=== PATIENT | male | born 1975 | race Caucasian/White ===

== ENCOUNTER 2017-06-15 12:31 | Emergency (ER) | payer BC ==
[~2017-06-15] VITALS: Ht 167.6 cm; Wt 91.0 kg
[2017-06-15] MEDS ORDERED: SODIUM CHLORIDE 0.9% 1,000 ML IV ONE (14:40)
[2017-06-15] MEDS ORDERED: MECLIZINE 25MG TABLET PO ONE (14:45)
[2017-06-15] MEDS ORDERED: FAMOTIDINE 20MG/2ML VIAL IV ONE (14:45)
[2017-06-15] MEDS ORDERED: DIPHENHYDRAMINE 50MG/ML VIAL IV ONE (14:45)
[2017-06-15] MEDS ORDERED: METOCLOPRAMIDE HCL 10MG/2ML VIAL IV ONE (14:45)
[2017-06-15 15:09] LABS: PROTHROMBIN TIME 10.9 sec (9.4-11.6)
[2017-06-15 15:11] LABS: BASOPHILS % 0.4 % (0.0-2.0); EOSINOPHILS % 0.3 % (0.0-5.0); HEMATOCRIT. 47.3 % (42.0-52.0); LYMPHOCYTES % 15.7 % (20.0-50.0); MEAN CORPUSCULAR HEMOGLOBIN 30.9 pg (28.0-32.0); MEAN CORPUSCULAR VOLUME 91.4 fL (80.0-94.0); MEAN PLATELET VOLUME 9.1 fl (7.4-10.4); MONOCYTES % 4.7 % (2.0-8.0); NEUTROPHILS % 78.9 % (40.0-76.0); PLATELET 287 x1000/uL (130-400); RED BLOOD CELL COUNT 5.18 mill/uL (4.7-6.1); RED CELL DISTRIBUTION WIDTH 13.6 % (11.6-14.6)
[2017-06-15 15:15] LABS: CARBON DIOXIDE 23 mEq/L (21-32); CHLORIDE 103 mEq/L (98-107)
[2017-06-15 17:07] LABS: CLARITY URINE CLEAR (CLEAR); COLOR URINE YELLOW (YELLOW); GLUCOSE URINE 3+ (NEGATIVE); KETONES URINE TRACE (NEGATIVE); LEUKOCYTE ESTERASE URINE NEGATIVE (NEGATIVE); NITRITE URINE NEGATIVE (NEGATIVE); OCCULT BLOOD URINE NEGATIVE (NEGATIVE); PROTEIN URINE 3+ (NEGATIVE); SPECIFIC GRAVITY URINE 1.038 (1.005-1.030); UROBILINOGEN URINE 0.2 E.U./dL (0.2-1.0)
[2017-06-15 17:24] LABS: *AMPHETAMINES SCREEN URINE NEGATIVE (NEGATIVE); *BARBITURATES SCREEN URINE NEGATIVE (NEGATIVE); *BENZODIAZEPINES SCREEN URINE NEGATIVE (NEGATIVE); *COCAINE SCREEN URINE NEGATIVE (NEGATIVE); CANNABINOID URINE SCREEN NEGATIVE (NEGATIVE); METHADONE URINE SCREEN NEGATIVE (NEGATIVE); OPIATES URINE SCREEN NEGATIVE (NEGATIVE); PHENCYCLIDINE URINE SCREEN NEGATIVE (NEGATIVE)
[2017-06-15 19:00] VITALS: BP 142/88
== END 2017-06-15 19:36 | disposition home or self-care (01) ==
LOC: ER 15:51
DX: H81.10 Benign paroxysmal vertigo, unspecified ear (principal); R51 Headache; R11.10 Vomiting, unspecified; E11.65 Type 2 diabetes mellitus with hyperglycemia; R03.0 Elevated blood-pressure reading, without diagnosis of hypertension; R79.89 Other specified abnormal findings of blood chemistry; J98.11 Atelectasis; I51.7 Cardiomegaly
CPT/HCPCS: 36415; 70450; 71010; 80053; 80305; 81001; 83690; 85025; 85610; 85730; 93005; 96361; 96374; 96375; 99285; J1200; J2765; J3490; J7030; Z7610; J8597

== ENCOUNTER 2022-05-02 11:20 | Emergency (ER) | payer OTHER, MEDICAID ==
[~2022-05-02] VITALS: Ht 170.2 cm; Wt 81.0 kg
[2022-05-02] MEDS ORDERED: OXYCODONE HCL/ACETAMINOPHEN 5/325MG TABLET PO ONE (13:00)
[2022-05-02 14:38] LABS: BASOPHILS % 0.5 % (0.0-2.0); EOSINOPHILS % 0.6 % (0.0-5.0); HEMATOCRIT. 33.5 % (42.0-52.0); HEMOGLOBIN. 11.3 g/dL (14.0-18.0); LYMPHOCYTES % 13.1 % (20.0-50.0); MEAN CORPUSCULAR HEMOGLOBIN 35.8 pg (28.0-32.0); MEAN CORPUSCULAR VOLUME 106.5 fL (80.0-94.0); MEAN PLATELET VOLUME 9.1 fl (7.4-10.4); MONOCYTES % 7.5 % (2.0-8.0); NEUTROPHILS % 78.3 % (40.0-76.0); PLATELET 196 x1000/uL (130-400); RED BLOOD CELL COUNT 3.15 mill/uL (4.7-6.1); RED CELL DISTRIBUTION WIDTH 18.7 % (11.6-14.6)
[2022-05-02 14:44] LABS: CHLORIDE 94 mEq/L (98-107)
[2022-05-02 15:48] LABS: INR 1.1; PROTHROMBIN TIME 11.7 sec (9.6-11.0)
[2022-05-02 16:00] VITALS: BP 153/85
== END 2022-05-02 16:39 | disposition home or self-care (01) ==
LOC: ER 11:20 → CANBEDREQ 17:20
DX: M79.18 Myalgia, other site (principal); M79.601 Pain in right arm; M79.602 Pain in left arm; E11.9 Type 2 diabetes mellitus without complications; I25.2 Old myocardial infarction; Z86.73 Personal history of transient ischemic attack (TIA), and cerebral infarction without residual deficits
CPT/HCPCS: 36415; 71045; 80053; 83605; 85025; 93005; 99285

== ENCOUNTER 2022-09-24 11:06 | Inpatient (IN) | payer OTHER, MEDICAID ==
[2022-09-23] MEDS: DEXT 5%/LACTATED RINGERS 1,000 ML IV SCH (23:50)
[~2022-09-24] VITALS: Ht 167.6 cm; Wt 77.8 kg
[2022-09-24 12:43] LABS: HEMATOCRIT. 23.5 % (42.0-52.0); HEMOGLOBIN. 7.2 g/dL (14.0-18.0); MEAN CORPUSCULAR HEMOGLOBIN 33.9 pg (28.0-32.0); MEAN CORPUSCULAR VOLUME 110.1 fL (80.0-94.0); MEAN PLATELET VOLUME 10.4 fl (7.4-10.4); PLATELET 91 x1000/uL (130-400); RED BLOOD CELL COUNT 2.13 mill/uL (4.7-6.1); RED CELL DISTRIBUTION WIDTH 19.2 % (11.6-14.6)
[2022-09-24] MEDS ORDERED: PANTOPRAZOLE SODIUM 40 MG/VIAL IV ONE (12:45)
[2022-09-24 12:57] LABS: INR 1.9; PROTHROMBIN TIME 19.8 sec (9.6-11.0)
[2022-09-24] MEDS ORDERED: PIPERACILLIN/TAZOBACTAM 3.375GM/50ML PREMIX IV ONE (13:45)
[2022-09-24] MEDS ORDERED: VANCOMYCIN 1G PREMIX 200 ML IV SCH (13:45)
[2022-09-24] MEDS ORDERED: PIPERACILLIN/TAZ 3.375G PREMIX 50 ML IV NR (14:00)
[2022-09-24 14:19] LABS: PLATELET ESTIMATE DECREASED
[2022-09-24 15:08] LABS: CHLORIDE 115 mEq/L (98-107)
[2022-09-24] MEDS ORDERED: SODIUM CHLORIDE 0.9% 500 ML IV ONE (15:45)
[2022-09-24] MEDS: PIPERACILLIN/TAZOBACTAM 3.375G in DEXT 5% WATER 50ML IV NR ×2 (15:45→19:54)
[2022-09-24] MEDS ORDERED: KCL 10MEQ/50ML PREMIX 50 ML IV ONE (15:45)
[2022-09-24] MEDS ORDERED: ONDANSETRON HCL 4MG/2ML INJ IV PRN (17:30)
[2022-09-24] MEDS ORDERED: MAGNESIUM/ALUMINUM HYDROXIDE/SIMETHICONE 30ML UDC PO PRN (17:30)
[2022-09-24] MEDS ORDERED: CLONIDINE 0.1MG TABLET PO PRN (17:30)
[2022-09-24] MEDS ORDERED: DOCUSATE SODIUM 100MG CAPSULE PO PRN (17:30)
[2022-09-24] MEDS ORDERED: IPRATROPIUM/ALBUTEROL 0.5-3(2.5)MG/3ML NEB NEB PRN (17:30)
[2022-09-24] MEDS ORDERED: ACETAMINOPHEN 325MG TABLET PO PRN (17:30)
[2022-09-24] MEDS ORDERED: PANTOPRAZOLE SODIUM 40 MG/VIAL IV SCH (18:00)
[2022-09-24] MEDS ORDERED: SODIUM BICARBONATE 8.4% 1 MEQ/ML 50ML SYR IV NR (18:30)
[2022-09-24] MEDS ORDERED: MEROPENEM 1,000 MG in SODIUM CHLORIDE 0.9% 100 ML IV SCH (19:00)
[2022-09-24] MEDS ORDERED: OCTREOTIDE 1,000 MCG in SODIUM CHLORIDE 0.9% 100 ML IV SCH (19:00)
[2022-09-24 19:04] LABS: BG BASE EXCESS -3.7 mmol/L (-2.0-2.0); BG DEOXYHEMOGLOBIN 3.9 % (0.0-5.0); BG FRACTION INSPIRED OXYGEN 32; BG HCO3 ACT 21.6 mmol/L (22.0-26.0); BG METHEMOGLOBIN 0.1 % (0.0-1.5); BG OXYGEN SATURATION 96.1 % (92.0-98.5); BG PCO2 40.2 mmHg (35.0-45.0); BG PH 7.349 (7.350-7.450); BG PO2 85.3 mmHg (75.0-100.0); BG SAMPLE SITE RIGHT BRACHIAL; BG TOTAL HEMOGLOBIN 11.9 g/dL (12.0-18.0); BG VENT MODE NASAL CANNULA
[2022-09-24 19:13] LABS: INR 1.4; PROTHROMBIN TIME 15.1 sec (9.6-11.0)
[2022-09-24 19:58] LABS: HEPATITIS B SURFACE ANTIGEN NEGATIVE
[2022-09-24 20:42] LABS: FERRITIN 4323 ng/mL (22-322)
[2022-09-24 22:07] LABS: CREATINE KINASE 562 IU/L (39-308); CREATINE KINASE MB FRACTION 2.6 ng/mL (0.5-3.6)
[2022-09-24 22:27] LABS: TOTAL IRON BINDING CAPACITY 166 ug/dL (250-450)
[2022-09-24] MEDS: BLOOD SUGAR DIAGNOSTIC STRIP TEST SCH (22:30)
[2022-09-24] MEDS: INSULIN GLARGINE 100 UNITS/ML SUBCUT SCH (23:00)
[2022-09-24] MEDS: PANTOPRAZOLE SODIUM 40 MG/VIAL IV SCH (23:00)
[2022-09-24] MEDS: INSULIN LISPRO 100 UNITS/ML SUBCUT SCH (23:10)
[2022-09-24 23:20] LABS: ETHANOL BLOOD < 10 mg/dL; HDL CHOLESTEROL 19 mg/dL (40-59); LDL CHOLESTEROL 23 mg/dL (5-100); T4 FREE 0.98 ng/dL (0.76-1.46); TOTAL IRON BINDING CAPACITY 211 ug/dL (250-450)
[2022-09-25] VITALS (16 sets, daily range): BP systolic 86–122; BP diastolic 37–73
[2022-09-25 00:05] LABS: FOLIC ACID (FOLATE) SERUM >20 ng/mL ng/mL (>5.38); VITAMIN B12 SERUM >2000 pg/mL pg/mL (211-911)
[2022-09-25] MEDS ORDERED: POTASSIUM CHLORIDE 20MEQ TABLET SR PO NR (00:15)
[2022-09-25] MEDS ORDERED: OCTREOTIDE 1,000 MCG in SODIUM CHLORIDE 0.9% 100 ML IV SCH (01:00)
[2022-09-25] MEDS: BLOOD SUGAR DIAGNOSTIC STRIP TEST SCH ×4 (08:15→21:19)
[2022-09-25] MEDS ORDERED: VANCOMYCIN 750MG PREMIX 150 ML IV NR (09:00)
[2022-09-25] MEDS: INSULIN LISPRO 100 UNITS/ML SUBCUT SCH ×4 (09:02→21:00)
[2022-09-25 12:43] LABS: BASOPHILS % 0.6 % (0.0-2.0); EOSINOPHILS % 0.9 % (0.0-5.0); HEMATOCRIT. 34.5 % (42.0-52.0); HEMOGLOBIN. 11.2 g/dL (14.0-18.0); LYMPHOCYTES % 7.8 % (20.0-50.0); MEAN CORPUSCULAR HEMOGLOBIN 33.2 pg (28.0-32.0); MEAN CORPUSCULAR VOLUME 102.2 fL (80.0-94.0); MEAN PLATELET VOLUME 10.3 fl (7.4-10.4); MONOCYTES % 9.3 % (2.0-8.0); NEUTROPHILS % 81.4 % (40.0-76.0); PLATELET 152 x1000/uL (130-400); RED BLOOD CELL COUNT 3.38 mill/uL (4.7-6.1); RED CELL DISTRIBUTION WIDTH 18.4 % (11.6-14.6)
[2022-09-25 13:01] LABS: CREATINE KINASE MB FRACTION 1.3 ng/mL (0.5-3.6)
[2022-09-25] MEDS: DEXTROSE 50% WATER 50ML SYRINGE IV PRN ×2 (14:32→18:30)
[2022-09-25] MEDS: DEXT 5%/LACTATED RINGERS 1,000 ML IV SCH ×2 (14:39→18:21)
[2022-09-25] MEDS ORDERED: MEROPENEM 1,000 MG in SODIUM CHLORIDE 0.9% 100 ML IV SCH (21:00)
[2022-09-25] MEDS: PANTOPRAZOLE SODIUM 40 MG/VIAL IV SCH (21:00)
[2022-09-25] MEDS ORDERED: EPOETIN ALFA 10000UNITS/ML VIAL SUBCUT SCH (21:00)
[2022-09-25] MEDS: INSULIN GLARGINE 100 UNITS/ML SUBCUT SCH (22:00)
[2022-09-25] MEDS: ACETAMINOPHEN 325MG TABLET PO PRN (23:17)
[2022-09-25 23:20] LABS: CHLORIDE 101 mEq/L (98-107)
[2022-09-25 23:21] LABS: PHOSPHORUS 2.8 mg/dL (2.5-4.9)
[2022-09-26] VITALS (29 sets, daily range): BP systolic 94–172; BP diastolic 50–88
[2022-09-26] MEDS: ACETAMINOPHEN 325MG TABLET PO PRN ×2 (03:26→16:23)
[2022-09-26] MEDS: GUAIFENESIN 200MG/10ML SUGAR FREE UDC PO PRN ×2 (03:33→06:43)
[2022-09-26 06:50] LABS: HEMATOCRIT. 33.5 % (42.0-52.0); HEMOGLOBIN. 10.8 g/dL (14.0-18.0); MEAN CORPUSCULAR HEMOGLOBIN 33.1 pg (28.0-32.0); MEAN CORPUSCULAR VOLUME 102.9 fL (80.0-94.0); MEAN PLATELET VOLUME 10.2 fl (7.4-10.4); PLATELET 138 x1000/uL (130-400); RED BLOOD CELL COUNT 3.26 mill/uL (4.7-6.1); RED CELL DISTRIBUTION WIDTH 18.5 % (11.6-14.6)
[2022-09-26 07:15] LABS: CHLORIDE 104 mEq/L (98-107)
[2022-09-26 07:24] LABS: PHOSPHORUS 3.2 mg/dL (2.5-4.9)
[2022-09-26] MEDS: BLOOD SUGAR DIAGNOSTIC STRIP TEST SCH ×4 (07:30→21:00)
[2022-09-26] MEDS: INSULIN LISPRO 100 UNITS/ML SUBCUT SCH ×4 (08:00→22:03)
[2022-09-26] MEDS: DEXT 5%/LACTATED RINGERS 1,000 ML IV SCH ×2 (08:43→09:07)
[2022-09-26] MEDS: PANTOPRAZOLE SODIUM 40 MG/VIAL IV SCH ×2 (09:06→22:01)
[2022-09-26 12:15] LABS: PLATELET ESTIMATE NORMAL
[2022-09-26] MEDS ORDERED: VANCOMYCIN 750MG PREMIX 150 ML IV NR (18:00)
[2022-09-26] MEDS: CEFEPIME 1,000 MG in DEXTROSE 5% WATER 50 ML IV SCH (18:49)
[2022-09-26] MEDS: METRONIDAZOLE 250MG TABLET PO SCH (22:00)
[2022-09-26] MEDS: INSULIN GLARGINE 100 UNITS/ML SUBCUT SCH (22:04)
[2022-09-27] VITALS (9 sets, daily range): BP systolic 91–128; BP diastolic 50–96
[2022-09-27] MEDS: METRONIDAZOLE 250MG TABLET PO SCH ×3 (06:35→21:45)
[2022-09-27] MEDS: BLOOD SUGAR DIAGNOSTIC STRIP TEST SCH ×4 (07:30→21:45)
[2022-09-27] MEDS: INSULIN LISPRO 100 UNITS/ML SUBCUT SCH ×4 (08:00→21:00)
[2022-09-27 08:20] LABS: BASOPHILS % 0.4 % (0.0-2.0); EOSINOPHILS % 1.5 % (0.0-5.0); HEMATOCRIT. 37.3 % (42.0-52.0); LYMPHOCYTES % 7.5 % (20.0-50.0); MEAN CORPUSCULAR HEMOGLOBIN 33.2 pg (28.0-32.0); MEAN PLATELET VOLUME 10.2 fl (7.4-10.4); MONOCYTES % 7.8 % (2.0-8.0); NEUTROPHILS % 82.8 % (40.0-76.0); PLATELET 157 x1000/uL (130-400); RED BLOOD CELL COUNT 3.62 mill/uL (4.7-6.1); RED CELL DISTRIBUTION WIDTH 18.8 % (11.6-14.6)
[2022-09-27 08:31] LABS: INR 1.4; PROTHROMBIN TIME 15.1 sec (9.6-11.0)
[2022-09-27] MEDS: PANTOPRAZOLE SODIUM 40 MG/VIAL IV SCH ×2 (09:53→21:00)
[2022-09-27] MEDS: CEFEPIME 1,000 MG in DEXTROSE 5% WATER 50 ML IV SCH (17:21)
[2022-09-27 20:22] LABS: PHOSPHORUS 2.9 mg/dL (2.5-4.9)
[2022-09-27] MEDS ORDERED: EPOETIN ALFA-EPBX 4,000 UNIT/ML VIAL SUBCUT SCH (21:00)
[2022-09-27] MEDS: INSULIN GLARGINE 100 UNITS/ML SUBCUT SCH (21:46)
[2022-09-28] VITALS: BP 131/97
[2022-09-28 04:00] VITALS: BP 103/53
[2022-09-28 06:30] LABS: BASOPHILS % 0.6 % (0.0-2.0); EOSINOPHILS % 1.4 % (0.0-5.0); HEMATOCRIT. 34.6 % (42.0-52.0); HEMOGLOBIN. 11.3 g/dL (14.0-18.0); LYMPHOCYTES % 8.1 % (20.0-50.0); MEAN CORPUSCULAR HEMOGLOBIN 33.2 pg (28.0-32.0); MEAN CORPUSCULAR VOLUME 101.9 fL (80.0-94.0); MEAN PLATELET VOLUME 10.3 fl (7.4-10.4); NEUTROPHILS % 80.9 % (40.0-76.0); PLATELET 156 x1000/uL (130-400); RED BLOOD CELL COUNT 3.39 mill/uL (4.7-6.1)
[2022-09-28] MEDS: BLOOD SUGAR DIAGNOSTIC STRIP TEST SCH ×4 (06:31→20:18)
[2022-09-28] MEDS: INSULIN LISPRO 100 UNITS/ML SUBCUT SCH ×4 (06:31→20:18)
[2022-09-28] MEDS: METRONIDAZOLE 250MG TABLET PO SCH ×3 (06:36→21:00)
[2022-09-28] MEDS: DEXTROSE 50% WATER 50ML SYRINGE IV PRN (07:12)
[2022-09-28 08:08] LABS: PHOSPHORUS 3.5 mg/dL (2.5-4.9)
[2022-09-28] MEDS: PANTOPRAZOLE SODIUM 40 MG/VIAL IV SCH ×2 (09:47→21:00)
[2022-09-28 12:00] VITALS: BP 155/77
[2022-09-28] MEDS ORDERED: SODIUM CHLORIDE 10% FOR INH 15ML VIAL NEB INH NR (12:30)
[2022-09-28 16:00] VITALS: BP 119/69
[2022-09-28] MEDS: CEFEPIME 1,000 MG in DEXTROSE 5% WATER 50 ML IV SCH (18:07)
[2022-09-28 20:00] VITALS: BP 132/67
[2022-09-28] MEDS ORDERED: INSULIN GLARGINE 100 UNITS/ML SUBCUT SCH (22:00)
[2022-09-29] VITALS (14 sets, daily range): BP systolic 98–133; BP diastolic 42–88
[2022-09-29] MEDS: BLOOD SUGAR DIAGNOSTIC STRIP TEST SCH ×3 (05:53→17:00)
[2022-09-29] MEDS: METRONIDAZOLE 250MG TABLET PO SCH ×2 (05:53→14:17)
[2022-09-29] MEDS: INSULIN LISPRO 100 UNITS/ML SUBCUT SCH ×3 (06:17→17:00)
[2022-09-29 06:33] LABS: BASOPHILS % 0.9 % (0.0-2.0); EOSINOPHILS % 1.7 % (0.0-5.0); HEMATOCRIT. 34.5 % (42.0-52.0); HEMOGLOBIN. 11.3 g/dL (14.0-18.0); LYMPHOCYTES % 8.3 % (20.0-50.0); MEAN CORPUSCULAR HEMOGLOBIN 33.2 pg (28.0-32.0); MEAN CORPUSCULAR VOLUME 101.1 fL (80.0-94.0); MONOCYTES % 9.7 % (2.0-8.0); NEUTROPHILS % 79.4 % (40.0-76.0); PLATELET 164 x1000/uL (130-400); RED BLOOD CELL COUNT 3.41 mill/uL (4.7-6.1); RED CELL DISTRIBUTION WIDTH 18.3 % (11.6-14.6)
[2022-09-29] MEDS: PANTOPRAZOLE SODIUM 40 MG/VIAL IV SCH (09:22)
[2022-09-29 09:24] LABS: PHOSPHORUS 3.6 mg/dL (2.5-4.9)
[2022-09-29] MEDS: CEFEPIME 1,000 MG in DEXTROSE 5% WATER 50 ML IV SCH (17:03)
[2022-09-29] MEDS ORDERED: VANCOMYCIN 1G PREMIX 200 ML IV NR (18:00)
== END 2022-09-29 21:30 | disposition left against medical advice (07) | DRG 871 ==
LOC: ER 11:06 → MICUSO 16:46 → EDBEDREQTM 16:48 → EDBEDREQ 16:48 → 5EST 09-25 16:09 → 7EST 09-27 12:35
PROVIDERS: ADMIT Internal Medicine; ATTEND Internal Medicine
PROC: 5A1D70Z Performance of Urinary Filtration, Intermittent, Less than 6 Hours Per Day (ICD-10-PCS; principal; 2022-09-25)
PROC: 5A1D70Z Performance of Urinary Filtration, Intermittent, Less than 6 Hours Per Day (ICD-10-PCS; 2022-09-26)
PROC: 5A1D70Z Performance of Urinary Filtration, Intermittent, Less than 6 Hours Per Day (ICD-10-PCS; 2022-09-29)
DX: A41.9 Sepsis, unspecified organism (principal); E43 Unspecified severe protein-calorie malnutrition; J18.9 Pneumonia, unspecified organism; N18.6 End stage renal disease; I21.4 Non-ST elevation (NSTEMI) myocardial infarction; J96.90 Respiratory failure, unspecified, unspecified whether with hypoxia or hypercapnia; K92.2 Gastrointestinal hemorrhage, unspecified; I12.0 Hypertensive chronic kidney disease with stage 5 chronic kidney disease or end stage renal disease; D68.9 Coagulation defect, unspecified; E87.20 Acidosis, unspecified; J81.1 Chronic pulmonary edema; E11.22 Type 2 diabetes mellitus with diabetic chronic kidney disease; D53.9 Nutritional anemia, unspecified; D69.6 Thrombocytopenia, unspecified; E11.65 Type 2 diabetes mellitus with hyperglycemia; E87.6 Hypokalemia; R65.20 Severe sepsis without septic shock; E78.5 Hyperlipidemia, unspecified; Z20.822 Contact with and (suspected) exposure to COVID-19; I25.10 Atherosclerotic heart disease of native coronary artery without angina pectoris; K80.20 Calculus of gallbladder without cholecystitis without obstruction; I25.2 Old myocardial infarction; D50.9 Iron deficiency anemia, unspecified; Z53.29 Procedure and treatment not carried out because of patient's decision for other reasons; Z86.73 Personal history of transient ischemic attack (TIA), and cerebral infarction without residual deficits; Z88.3 Allergy status to other anti-infective agents; Z99.2 Dependence on renal dialysis; Z79.1 Long term (current) use of non-steroidal anti-inflammatories (NSAID); Z95.5 Presence of coronary angioplasty implant and graft; Z82.49 Family history of ischemic heart disease and other diseases of the circulatory system; Z79.82 Long term (current) use of aspirin; Z79.4 Long term (current) use of insulin; Z79.02 Long term (current) use of antithrombotics/antiplatelets; Z83.3 Family history of diabetes mellitus; Z68.27 Body mass index [BMI] 27.0-27.9, adult
CPT/HCPCS: 36415; 36600; 71045; 71250; 76700; 80048; 80053; 80061; 80076; 80202; 80320; 82375; 82550; 82553; 82607; 82728; 82746; 82805; 82962; 83036; 83540; 83550; 83605; 83735; 83880; 84100; 84134; 84145; 84439; 84443; 84484; 85025; 85044; 86635; 86705; 86709; 86803; 86850; 86900; 86920; 87116; 87340; 87426; 87804; 87899; 90935; 93005; 93306; 93970; 99291; C9113; C9803; J0692; J1815; J2185; J2354; J2543; J3370; J3480; J3490; J7040; J7050; J7060; J7131; G0480